=== PATIENT | male | born 1995 | race Caucasian/White ===

== ENCOUNTER 2018-06-18 12:43 | Emergency (ER) | payer MEDICAID, OTHER ==
[~2018-06-18] VITALS: Ht 170.2 cm; Wt 90.3 kg
--- NOTE | 2018-06-18 13:30 | NUR ---
[facility]. NAD NOTED. RESP REGULAR AND UNLABORED. PT ABLE TO SWALLOW AND CLEAR OWN SECRETIONS WITHOUT DIFFICULTY. NELLIE SCHULTE AT BEDSIDE FOR EVAL, AWAITING ORDERS. CALL LIGHT IN REACH. FALL PRECAUTIONS IN PLACE.
[2018-06-18] MEDS ORDERED: DEXAMETHASONE 4 MG TABLET ONE (14:21)
[2018-06-18] MEDS ORDERED: DEXAMETHASONE 4 MG TABLET PO ONE (14:30)
--- NOTE | 2018-06-18 14:32 | NUR ---
NELLIE SCHULTE AT BEDSIDE FOR RECHECK
[2018-06-18 14:44] VITALS: BP 112/72
== END 2018-06-18 15:00 | disposition home or self-care (01) ==
LOC: ED 14:52
DX: J06.9 Acute upper respiratory infection, unspecified (principal); J03.00 Acute streptococcal tonsillitis, unspecified; F17.210 Nicotine dependence, cigarettes, uncomplicated
CPT/HCPCS: 71046; 99283

== ENCOUNTER 2018-10-06 18:32 | Emergency (ER) | payer SELFPAY ==
[~2018-10-06] VITALS: Ht 170.2 cm; Wt 84.0 kg
[2018-10-06 18:36] VITALS: BP 122/75
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
--- NOTE | 2018-10-06 18:53 | NUR ---
REPORT RECIEVED FROM SANDEEP BARAHONA. PT EMOTIONAL, CRYING WITH [employer]CULATION SALES REPRESENTATIVE AT BEDSIDE.
== END 2018-10-06 20:12 | disposition home or self-care (01) ==
LOC: ED 19:29
DX: R41.1 Anterograde amnesia (principal); F10.120 Alcohol abuse with intoxication, uncomplicated; F17.200 Nicotine dependence, unspecified, uncomplicated; I10 Essential (primary) hypertension; F25.9 Schizoaffective disorder, unspecified
CPT/HCPCS: 71045; 93005; 99284

== ENCOUNTER 2018-12-09 17:45 | Emergency (ER) | payer BC, OTHER ==
[~2018-12-09] VITALS: Ht 170.2 cm; Wt 90.0 kg
--- NOTE | 2018-12-09 17:55 | NUR ---
Room secured, sitter informed that pt here on legal hold. Belongings removed & secured in locker.
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
--- NOTE | 2018-12-09 18:19 | NUR ---
Walked by room, pt talking on cellphone. Told he can't have it in his posession. Reluctant to give it to me for securement but when told that security would be called, he handed me his phone. Has been seen by SUSAN FU. Aware of POC, continues to deny SI & states he wants to go home.
--- NOTE | 2018-12-09 18:26 | NUR ---
Leyla offered & declined by pt. States he'll inform staff if anxiety increases.
[2018-12-09] MEDS ORDERED: LORazepam 1MG TABLET PO ONE ×3 (18:30→20:30)
[2018-12-09 18:31] LABS: BASOPHILS % (AUTO) 0 % (0-1); EOSINOPHILS % (AUTO) 2 % (1-7); LYMPHOCYTES # (AUTO) 1.48 x10^3/uL (1-3.4); LYMPHOCYTES % (AUTO) 14 % (22-44); MD NO; MEAN CORPUSCULAR HEMOGLOBIN 32.5 pg (27.5-34.5); MEAN CORPUSCULAR HGB CONC 34.1 g/dL (33.2-36.2); MEAN CORPUSCULAR VOLUME 95.3 fL (81-97); MEAN PLATELET VOLUME 6.9 fL (7.4-10.4); MONOCYTES # (AUTO) 0.82 x10^3/uL (0.2-0.8); MONOCYTES % (AUTO) 8 % (2-9); NEUTROPHILS # (AUTO) 7.91 x10^3/uL (1.8-6.8); NEUTROPHILS % (AUTO) 76 % (42-75); PLATELET COUNT 330 x10^3/uL (130-400); RED BLOOD COUNT 4.99 x10^6/uL (4.38-5.82); RED CELL DISTRIBUTION WIDTH 12.4 % (9.4-14.8)
[2018-12-09 18:44] LABS: ALANINE AMINOTRANSFERASE 29 U/L (12-78); ALBUMIN 4.1 g/dL (3.4-5.0); ANION GAP 9 mmol/L (5-15); CALCIUM 8.4 mg/dL (8.5-10.1); CHLORIDE 110 mmol/L (98-107); SALICYLATE LEVEL 1.9 mg/dL (2.8-20.0)
[2018-12-09 18:46] LABS: AMPHETAMINE SCREEN, URINE Negative (Negative); BARBITURATE SCREEN, URINE Negative (Negative); BENZODIAZEPINE SCREEN, URINE Negative (Negative); CANNABINOID SCREEN, URINE Negative (Negative); COCAINE SCREEN, URINE Negative (Negative); METHADONE SCREEN, URINE Negative (Negative); OPIATE SCREEN, URINE Negative (Negative)
[2018-12-09 18:47] LABS: ALKALINE PHOSPHATASE 98 U/L (45-117); BILIRUBIN,TOTAL 0.2 mg/dL (0.2-1.0); TOTAL PROTEIN 7.9 g/dL (6.4-8.2)
--- NOTE | 2018-12-09 18:55 | NUR ---
report received from fer garay.
--- NOTE | 2018-12-09 19:07 | NUR ---
TP: TELE PSYCH PAGED
[2018-12-09] MEDS ORDERED: LORazepam 1MG TABLET ONE ×2 (19:25→20:00)
--- NOTE | 2018-12-09 19:37 | NUR ---
pt medicated per emar. pt tolerated well.
--- NOTE | 2018-12-09 19:38 | NUR ---
pt is agitated at this time. helga garay and this rn talked to pt. pt understands and agrees with policy.
--- NOTE | 2018-12-09 20:14 | NUR ---
PT REFUSED PREVIOUS ATIVAN. PT WANTED TO TAKE IT. EDMD REORDERED AGAIN. PT MEDICATED PER EMAR. TOTAL 2MG PO ATIVAN GIVEN.
--- NOTE | 2018-12-09 21:41 | NUR ---
pt talking to telepsych at this time.
[2018-12-09 22:15] VITALS: BP 115/65
--- NOTE | 2018-12-09 22:15 | NUR ---
Patient given discharge instructions and they have confirmed that they understand the instructions. Patient ambulatory with steady gait.
== END 2018-12-09 22:17 | disposition home or self-care (01) ==
LOC: ED 18:43
DX: F41.1 Generalized anxiety disorder (principal); F31.9 Bipolar disorder, unspecified; F25.9 Schizoaffective disorder, unspecified; I10 Essential (primary) hypertension; F17.200 Nicotine dependence, unspecified, uncomplicated
CPT/HCPCS: 36415; 80053; 80307; 85025; 99284